=== PATIENT | female | born 1990 | race Two or more races ===

== ENCOUNTER 2020-05-05 08:00 | Inpatient (IN) | payer OTHER ==
[~2020-05-05] VITALS: Ht 162.6 cm; Wt 3.2 kg
[2020-05-05] MEDS ORDERED: PRENAT PO (09:54)
[2020-05-05] MEDS ORDERED: FOLIC PO (09:55)
[2020-05-11] MEDS ORDERED: PRENATAL + DHA1 EAC1 PO (14:05)
[2020-05-11] MEDS ORDERED: FOLIC ACID0.8 M1 (14:06)
== END 2020-05-14 14:53 | disposition home or self-care (01) | DRG 785 ==
LOC: OB/GYN 05-11 06:18 → O/R 05-11 06:18 → SURH 05-11 08:00 → OB/GYN 05-11 14:16
PROVIDERS: ADMIT Obstetrics & Gynecology; ATTEND Obstetrics & Gynecology
PROC: 0UB70ZZ Excision of Bilateral Fallopian Tubes, Open Approach (ICD-10-PCS; 2020-05-11)
PROC: 4A1HXFZ Monitoring of Products of Conception, Cardiac Rhythm, External Approach (ICD-10-PCS; 2020-05-11)
PROC: 10D00Z1 Extraction of Products of Conception, Low, Open Approach (ICD-10-PCS; principal; 2020-05-11 10:45)
DX: O65.5 Obstructed labor due to abnormality of maternal pelvic organs (principal); O34.211 Maternal care for low transverse scar from previous cesarean delivery; O99.02 Anemia complicating childbirth; D64.9 Anemia, unspecified; Z30.2 Encounter for sterilization; Z3A.39 39 weeks gestation of pregnancy; Z37.0 Single live birth